=== PATIENT | female | born 1990 | race Caucasian/White ===

== ENCOUNTER 2018-08-28 09:02 | Inpatient (IN) | payer OTHER ==
[2018-08-28] MEDS: RINGERS SOLUTION,LACTATED 1,000 ML IV PRN ×3 (09:20→14:11)
[2018-08-28] MEDS ORDERED: OXYTOCIN/NORMAL SALINE 20 UNIT/1,000 ML RTUINJ IV PRN ×2 (09:29→17:09)
[2018-08-28] MEDS ORDERED: RINGERS SOLUTION,LACTATED 300 ML IV ONE (09:29)
[2018-08-28 10:02] LABS: HEMATOCRIT 29.8 % (36.0-47.0); HEMOGLOBIN 10.1 g/dL (12.0-15.5); MEAN CORPUSCULAR HEMOGLOBIN 31.8 pg (27.0-33.4); MEAN CORPUSCULAR HGB CONC 33.9 g/dL (32.0-36.0); MEAN CORPUSCULAR VOLUME 94 fl (80-97); PLATELET COUNT 233 10^3/uL (150-450); RED BLOOD COUNT 3.17 10^6/uL (3.72-5.28); RED CELL DISTRIBUTION WIDTH 15.4 % (11.5-14.0); WHITE BLOOD COUNT 9.9 10^3/uL (4.0-10.5)
[2018-08-28 10:04] LABS: APPEARANCE,URINE CLOUDY; BILIRUBIN,URINE NEGATIVE (NEGATIVE); COLOR,URINE YELLOW; GLUCOSE, URINE NEGATIVE (NEGATIVE); KETONES,URINE NEGATIVE (NEGATIVE); LEUKOCYTE ESTERASE,URINE MODERATE (NEGATIVE); NITRITE,URINE NEGATIVE (NEGATIVE); PROTEIN,URINE NEGATIVE (NEGATIVE); URINE SPECIFIC GRAVITY 1.016; UROBILINOGEN,URINE NEGATIVE mg/dL (<2.0)
--- NOTE | 2018-08-28 10:04 | Admission Physical ---
Datetime Report Generated by CPN: 08/28/2018 10:03 CURRENT ADMISSION Chief Complaint: Scheduled Induction of Labor Indication for Induction: Not Applicable Indication for Induction- Other: hx precipitous del polyhydramnios Admit Impression : No Active Labor Admit Plan: Initiate Labor Induction Protocol ALLERGIES Medication Allergies: No Medication Allergies: No Known Allergies (08/28/2018) Latex: No Latex Allergies (Annotations: Data stored by [facility] on behalf of user) Food Allergies: n/a Environmental Allergies: n/a OBSTETRICAL HISTORY EDC: 08/30/2018 00:00 : 3 Para: 2 Term: 2 : 0 SAB: 0 IAB: 0 Ectopic: 0 Livin Cesareans: 0 VBACs: 0 Multiple Births: 0 Gestational Diabetes: No Rh Sensitization: No Incompetent Cervix: No DORIE: No Infertility: No ART Treatment: No Uterine Anomaly: No IUGR: No Hx Previous C/S: No Macrosomia: No Hx Loss/Stillborn: No PIH: No Hx : No Placenta Previa/Abruption: No Depression/PP Depression: No PTL/PROM: No Post Hemorrhage: No Current Procedures: Ultrasound; NST Obstetrical History Comments: G1- term delivery G2- term delivery G3- current , poly SEE RECORDS Alcohol: No Marijuana : No Cocaine: No Other Illicit Drugs: No Cigarettes: Former Smoker. [id number] MEDICAL HISTORY Diabetes: No Blood Transfusion: No Pulmonary Disease (Asthma, TB): No Breast Disease: No Hypertension: No Derrick Helper Surgery: No Heart Disease: No Hosp/Surgery: Yes Autoimmune Disorder: No Anesthetic Complications: No Kidney Disease: No Abnormal Pap Smear: No Neuro/Epilepsy: No Psychiatric Disorders: No Other Medical Diseases: No Hepatitis/Liver Disease: No Significant Family History: No Varicosities/Phlebitis: No Trauma/Violence : No Thyroid Dysfunction: No Medical History Comments: wisdom teeth removed, childbirth INFECTIOUS HISTORY Gonorrhea: No Genital Herpes: No Chlamydia: No Tuberculosis: No Syphilis: No Hepatitis: No HIV/AIDS Exposure: No Rash or Viral Illness: No HPV: No PHYSICAL EXAM General: Normal HEENT: Deferred Neurologic: Normal Thyroid: Deferred Heart: Normal Lungs: Normal Breast: Deferred Back: Normal Abdomen: Deferred Genitourinary Exam: Normal Extremities: Deferred DTRs: Deferred Pelvic Type: Adequate Physical Exam Comments: 4 cm per Mary Jo on 08/22 FETUS A EGA: 39.5 Monitoring: External US FHR- Baseline: 130 Variability: Moderate 6-25bpm Accelerations: 15X15 Decelerations: None FHR Category: Category I Presentation: Vertex Admit Comment: PATRICK 27cm 08/26 PLANS FOR LABOR AND DELIVERY Labor and Delivery: None Pain Management: Epidural Feeding Preference: Breast Benefit of Breast Feed Discussed: Yes Circumcision: Yes INFORMED CONSENT Assignment: Tiera Wei MD Signature: with User ID: Armani : with User ID: [email or web address]
[2018-08-28 10:24] LABS: URINE AMPHETAMINES SCREEN NEGATIVE; URINE BARBITURATES SCREEN NEGATIVE; URINE BENZODIAZEPINES SCREEN NEGATIVE; URINE COCAINE SCREEN NEGATIVE; URINE MARIJUANA (THC) SCREEN NEGATIVE; URINE METHADONE SCREEN NEGATIVE; URINE PHENCYCLIDINE SCREEN NEGATIVE
[2018-08-28 10:48] LABS: ABSOLUTE LYMPHOCYTES# (MANUAL) 1.2 10^3/uL (0.5-4.7); ABSOLUTE MONOCYTES # (MANUAL) 0.9 10^3/uL (0.1-1.4); ABSOLUTE NEUTROPHILS# (MANUAL) 7.8 10^3/uL (1.7-8.2); BAND NEUTROPHILS % (MANUAL) 6 % (3-5); BASOPHILS % (MANUAL) 0 % (0-2); EOSINOPHILS % (MANUAL) 0 % (0-6); HYPOCHROMASIA SLIGHT; LYMPHOCYTES % (MANUAL) 12 % (13-45); METAMYELOCYTES % (MANUAL) 1 % (0); MONOCYTES % (MANUAL) 9 % (3-13); PLATELET COMMENT ADEQUATE; POLYCHROMASIA SLIGHT; SEGMENTED NEUTROPHILS % (MAN) 72 % (42-78); TOTAL CELLS COUNTED 100; TOXIC GRANULATION SLIGHT
[2018-08-28] MEDS ORDERED: MISOPROSTOL 0.2 MG TABLET ONE (11:52)
[2018-08-28] MEDS ORDERED: LIDOCAINE 1% INJ-PF (10 MG/ML) 30 ML SDV ONE (11:52)
[2018-08-28] MEDS ORDERED: FENTANYL/BUPIVACAINE/NS/PF 300 MCG/150 ML RTUINJ EPI ONE (11:52)
[2018-08-28] MEDS ORDERED: EPHEDRINE SULFATE INJ 50 MG/1 ML AMPULE ONE (11:52)
[2018-08-28] MEDS ORDERED: BUPIVACAINE HCL 0.25 % INJ/PF (2.5 MG/1 ML) 30 ML VIAL ONE (11:53)
[2018-08-28] MEDS ORDERED: OXYTOCIN/NORMAL SALINE 20 UNIT/1,000 ML RTUINJ ONE (11:53)
[2018-08-28] MEDS ORDERED: DIBUCAINE 1% OINTMENT 28 GM TP PRN (17:09)
[2018-08-28] MEDS ORDERED: ZOLPIDEM TARTRATE 5 MG TABLET PO PRN (17:09)
[2018-08-28] MEDS ORDERED: BENZOCAINE/MENTHOL AEROSOL SPRAY 56 ML TOP PRN (17:09)
[2018-08-28] MEDS ORDERED: ACETAMINOPHEN WITH CODEINE #3 TABLET PO PRN (17:09)
[2018-08-28] MEDS ORDERED: DIPH/PERTUSS(ACELL)/TETANUS VAC/PF 0.5 ML SYR (>=10YO) IM PRN (17:09)
[2018-08-28] MEDS ORDERED: MEASLES,MUMPS&RUBELLA VACC/PF 0.5 ML VIAL SUBCUT PRN (17:09)
[2018-08-28] MEDS ORDERED: IBUPROFEN 800 MG TABLET ONE (18:30)
--- NOTE | 2018-08-28 18:49 | Delivery Summary ---
Del Sum A-C Datetime Report Generated by CPN: 08/28/2018 18:49 DELIVERY PERSONNEL DELIVERY PERSONNEL: [id number] Delivery Doctor:: Vonnie Sofia CNM Labor and Delivery Nurse:: Lauren Jorge RN Nursery Nurse:: Catherine Cormier RN Hand Laster/BOOT LINER MAKER: Desiree Cid, TAX ATTORNEY MATERNAL INFORMATION Delivery Anesthesia: Epidural Medications After Delivery: Pitocin Drip 20 Units/1000ml NSS Maternal Complications: Precipitous Labor (<3hrs) Provider Comments: SVDVM over intact perineum with Rt compound hand, AVRIL position. vigorous, to mothers abd. Cord clamped x 2 cut per FOB, mother and stable. Apgars 9,9. Mild PPH. Cytotec placed 1000mcg per Rectum. Hemostasis acheived. LABOR SUMMARY EDC: 08/30/2018 00:00 No. Babies in Womb: 1 Attempted: No Labor Anesthesia: Epidural LABOR INFORMATION Reason for Induction: Polyhydramnios Onset of Labor: 08/28/2018 14:20 Complete Dilatation: 08/28/2018 15:36 Oxytocin: Induction Group B Beta Strep: Negative Steroids Given: None Reason Steroids Not Administered: Not Applicable MEMBRANES Membranes Rupture Method: Artificial Rupture of Membranes: 08/28/2018 14:20 Length of Rupture (hr): 1.55 Amniotic Fluid Color: Clear Amniotic Fluid Amount: Moderate Amniotic Fluid Odor: Normal STAGES OF LABOR Stage 1 hr: 1 Stage 1 min: 16 Stage 2 hr: 0 Stage 2 min: 17 Stage 3 hr: 0 Stage 3 min: 13 Total Time in Labor hr: 1 Total Time in Labor min: 46 VAGINAL DELIVERY Episiotomy: None Laceration #1: None Laceration Extension #1: N/A Laceration Repair: Not Applicable Sponge Count Correct: N/A Sharps Count Correct: N/A CSECTION DELIVERY Primary Indication: N/A Secondary Indication: N/A CSection Incidence: N/A Labor: N/A Elective: N/A CSection Incision: N/A BABY A INFORMATION Infant Delivery Date/Time: 08/28/2018 15:53 Method of Delivery: Vaginal Born in Route : No : N/A Forceps: N/A Vacuum Extraction: N/A Shoulder Dystocia : No PRESENTATION/POSITION BABY A Presentation: Cephalic Cephalic Presentation: Vertex Vertex Position: Right Occipital Anterior Breech Presentation: N/A PLACENTA INFORMATION BABY A Placenta Delivery Time : 08/28/2018 16:06 Placenta Method of Delivery: Spontaneous Placenta Status: Delivered SCORES BABY A Heart Rate 1 min: >100 bpm Resp Effort 1 min: Good Cry Reflex Irritability 1 min: Cough or Sneeze or Pulls Away Muscle Tone 1 min: Active Motion Color 1 min: Body Manley, Extremities Blue Resuscitation Effort 1 min: Tactile Stimulation SCORE 1 MIN: 9 Heart Rate 5 min: >100 bpm Resp Effort 5 min: Good Cry Reflex Irritability 5 min: Cough or Sneeze or Pulls Away Muscle Tone 5 min: Active Motion Color 5 min: Body Manley, Extremities Blue Resuscitation Effort 5 min: N/A SCORE 5 MIN: 9 INFANT INFORMATION BABY A Gestational Age at Delivery: 39.5 Gestational Status: Full Term- 39- 40.6 Weeks Outcome : Liveborn Infant Condition : Stable Sex: Male IDENTIFICATION BABY A Infant Verification Date/Time: 08/28/2018 16:10 ID Band Number: [id number] Mother's Name Verified: Yes RN Verifying : B Baidy RN Additional Verifying Personnel: C Yohannes RN WEIGHT/LENGTH BABY A Birthweight (gm): 4220 Infant Weight (lb): 9 Infant Weight (oz): 5 Length (in): 20.75 Length (cm): 52.71 CORD INFORMATION BABY A No. Cord Vessels: 3 Nuchal Cord : N/A Cord Blood Taken: Yes-For Storage (Mom's Blood type +) Infant Suction: Mouth ASSESSMENT BABY A Complications: None Physical Findings at Delivery: Bruising Physical Findings- Other: facial bruising Infant Respirations: Appears Normal Skin to Skin: Yes Survival Equipment Repairer/ALS Called : No Care By: Beto Cormier RN Transferred To: Remains with Mother BABY B INFORMATION : N/A SIGNATURES Assignment: Tiera Younger Eure, MD Signature: with User ID: [email or web address] : with User ID: [email or web address] : I was personally available for consultation and serving as supervising physician for the MLP.
[2018-08-28] MEDS: FERROUS SULFATE 325 MG TABLET PO SCH (19:59)
[2018-08-28] MEDS: DOCUSATE SODIUM 100 MG CAPSULE PO SCH (19:59)
[2018-08-28] MEDS: ACETAMINOPHEN WITH CODEINE #3 TABLET PO PRN (20:28)
[2018-08-28] MEDS: IBUPROFEN 800 MG TABLET PO SCH (22:52)
[2018-08-29] MEDS: IBUPROFEN 800 MG TABLET PO SCH ×3 (05:52→21:28)
[2018-08-29 07:34] LABS: HEMOGLOBIN 9.7 g/dL (12.0-15.5); MEAN CORPUSCULAR HEMOGLOBIN 30.9 pg (27.0-33.4); MEAN CORPUSCULAR HGB CONC 33.5 g/dL (32.0-36.0); MEAN CORPUSCULAR VOLUME 92 fl (80-97); PLATELET COUNT 209 10^3/uL (150-450); RED BLOOD COUNT 3.15 10^6/uL (3.72-5.28); RED CELL DISTRIBUTION WIDTH 15.4 % (11.5-14.0); WHITE BLOOD COUNT 10.5 10^3/uL (4.0-10.5)
--- NOTE | 2018-08-29 09:04 | PDOC PROGRESS REPORT ---
Addendum entered and electronically signed by SOHAN HUIZAR CNM 08/29/18 09:06: Final Diagnosis Discharge Date: 08/29/18 - Final Diagnosis (1) Anemia, Is this a current diagnosis for this admission?: Yes (2) Polyhydramnios Is this a current diagnosis for this admission?: Yes (3) Vaginal delivery Is this a current diagnosis for this admission?: Yes (4) PPH ( hemorrhage) Is this a current diagnosis for this admission?: Yes Original Note: Subjective-OB Progress Note for:: 08/29/18 - PP Day #1, doing well, no complaints, , Physical Exam (OB) Vital Signs: Temp Pulse Resp BP Pulse Ox 98.4 F 79 18 138/63 H 97 08/28/18 21:11 08/28/18 21:11 08/28/18 21:11 08/28/18 21:11 08/28/18 21:11 Intake & Output 08/28/18 08/29/18 08/30/18 06:59 06:59 06:59 Intake Total 2604 Balance 2604 Weight 98.2 kg - General General Appearance: Appears well, Alert - PIH/Pre-Eclampsia Headache: Absent Epigastric Pain: No Visual Changes: No - Lochia Lochia Amount: Scant < 10 ml Lochia Color: Rubra/Red - Abdomen Description: Tender, Soft Hernia Present: No Fundal Description: Firm, Midline Fundal Height: u/u - u/2 - HEENT Head: Normocephalic Eyes: Normal Mucous membrane: Normal - Respiratory Respiratory Status: No respiratory distress - Abdominal Inspection: Normal Distension: No distension - Genitourinary Genitourinary Note: voiding - Extremities Upper extremity: Normal inspection Lower extremities: Normal inspection - Neurological Cognition: Normal Orientation: AAOx4 - Psychological Associated symptoms: Normal affect, Normal mood - Skin Skin Temperature: Warm Objective-Diagnostic Laboratory: 08/29/18 07:01 08/28/18 08/28/18 08/28/18 09:16 09:16 09:30 WBC 9.9 RBC 3.17 L Hgb 10.1 L Hct 29.8 L MCV 94 MCH 31.8 MCHC 33.9 RDW 15.4 H Plt Count 233 Seg Neutrophils % Not Reportable Lymphocytes % Not Reportable Monocytes % Not Reportable Eosinophils % Not Reportable Basophils % Not Reportable Absolute Neutrophils Not Reportable Absolute Lymphocytes Not Reportable Absolute Monocytes Not Reportable Absolute Eosinophils Not Reportable Absolute Basophils Not Reportable Urine Color YELLOW Urine Appearance CLOUDY Urine pH 6.0 Ur Specific [place] 1.016 Urine Protein NEGATIVE Urine Glucose (UA) NEGATIVE Urine Ketones NEGATIVE Urine Blood NEGATIVE Urine Nitrite NEGATIVE Ur Leukocyte Esterase MODERATE H Urine WBC (Auto) 10 Urine RBC (Auto) 2 Blood Type A POSITIVE Antibody Screen NEGATIVE 08/29/18 07:01 WBC 10.5 RBC 3.15 L Hgb 9.7 L Hct 29.0 L MCV 92 MCH 30.9 MCHC 33.5 RDW 15.4 H Plt Count 209 Seg Neutrophils % Lymphocytes % Monocytes % Eosinophils % Basophils % Absolute Neutrophils Absolute Lymphocytes Absolute Monocytes Absolute Eosinophils Absolute Basophils Urine Color Urine Appearance Urine pH Ur Specific [place] Urine Protein Urine Glucose (UA) Urine Ketones Urine Blood Urine Nitrite Ur Leukocyte Esterase Urine WBC (Auto) Urine RBC (Auto) Blood Type Antibody Screen Assessment and Plan(PN) - Assessment and Plan (1) Anemia, Is this a current diagnosis for this admission?: Yes (2) Polyhydramnios Qualifiers: Fetus number: single or unspecified fetus Is this a current diagnosis for this admission?: Yes (3) Vaginal delivery Is this a current diagnosis for this admission?: Yes - Time Spent with Patient Time with patient: Less than 15 minutes Medications reviewed and adjusted accordingly: Yes - Disposition Anticipated Discharge: Home Within: within 24 hours
[2018-08-29] MEDS: DOCUSATE SODIUM 100 MG CAPSULE PO SCH ×2 (09:56→19:20)
[2018-08-29] MEDS: FERROUS SULFATE 325 MG TABLET PO SCH ×2 (09:56→19:20)
[2018-08-29] MEDS: PRENATAL VITAMIN W DHA CAPSULE PO SCH (09:56)
[2018-08-29] MEDS: SENNOSIDES/DOCUSATE 8.6-50 MG 1 EACH TABLET PO SCH (09:56)
[2018-08-29] MEDS: ACETAMINOPHEN WITH CODEINE #3 TABLET PO PRN (10:03)
[2018-08-30] MEDS: IBUPROFEN 800 MG TABLET PO SCH (05:39)
[2018-08-30 08:20] VITALS: BP 132/76
--- NOTE | 2018-08-30 08:49 | PDOC PROGRESS REPORT ---
Subjective-OB Progress Note for:: 08/30/18 Subjective: OOB to nursery, no c/o, Physical Exam (OB) Vital Signs: Temp Pulse Resp BP Pulse Ox 98.2 F 75 16 132/76 H 98 08/30/18 07:42 08/30/18 07:42 08/30/18 07:42 08/30/18 07:42 08/30/18 07:42 Intake & Output 08/29/18 08/30/18 08/31/18 06:59 06:59 06:59 Intake Total 2604 Balance 2604 Weight 98.2 kg - PIH/Pre-Eclampsia Headache: Absent Epigastric Pain: No Visual Changes: No - Lochia Lochia Amount: Scant < 10 ml Lochia Color: Rubra/Red - Abdomen Description: Tender, Soft Hernia Present: No Fundal Description: Firm Fundal Height: u/u - u/2 Objective-Diagnostic Laboratory: 08/29/18 07:01 Assessment and Plan(PN) - Assessment and Plan (1) PPH ( hemorrhage) Qualifiers: hemorrhage type: unspecified Qualified Code(s): O72.1 - Other immediate hemorrhage Is this a current diagnosis for this admission?: Yes (2) Polyhydramnios Qualifiers: Fetus number: single or unspecified fetus Is this a current diagnosis for this admission?: Yes (3) Vaginal delivery Is this a current diagnosis for this admission?: Yes - Time Spent with Patient Time with patient: Less than 15 minutes Medications reviewed and adjusted accordingly: Yes - Disposition Anticipated Discharge: Home Within: within 24 hours
--- NOTE | 2018-08-30 08:52 | PDOC DISCHARGE SUMMARY ---
Final Diagnosis Discharge Date: 08/30/18 - Final Diagnosis (1) PPH ( hemorrhage) Is this a current diagnosis for this admission?: Yes (2) Polyhydramnios Is this a current diagnosis for this admission?: Yes (3) Vaginal delivery Is this a current diagnosis for this admission?: Yes Discharge Data - Discharge Medication Home Medications: Iron 1 tab PO DAILY 08/28/18 Vit,Calc76/Iron/Folic [Prenatabs Rx Tablet] 1 tab PO DAILY 08/28/18 Ferrous Sulfate [Feosol 325 mg Tablet] 325 mg PO BID tablet 08/30/18 Gestational Age: 39.5 Reason(s) for Admission: Onset of Labor Procedures: NST, Ultrasound Intrapartum Procedure(s): Spontaneous Vaginal Delivery Complication(s): Hemorrhage-Uterine Atony - Diagnosis Test Laboratory: Temp Pulse Resp BP Pulse Ox 98.2 F 75 16 132/76 H 98 08/30/18 07:42 08/30/18 07:42 08/30/18 07:42 08/30/18 07:42 08/30/18 07:42 08/28/18 08/28/18 08/29/18 09:16 09:30 07:01 RBC 3.17 L 3.15 L Hgb 10.1 L 9.7 L Hct 29.8 L 29.0 L Urine Opiates Screen UNCONFIRMED POSITIVE - Discharge information/Instructions Discharge Activity: Activity As Tolerated, No Lifting Over 10 Pounds, No Lifting/Push/Pulling, Pelvic Rest Discharge Diet: As Tolerated, Regular Disposition: HOME, SELF-CARE Follow up with: [facility] in: 4, Weeks
[2018-08-30] MEDS: DOCUSATE SODIUM 100 MG CAPSULE PO SCH (10:00)
[2018-08-30] MEDS: FERROUS SULFATE 325 MG TABLET PO SCH (10:00)
[2018-08-30] MEDS: SENNOSIDES/DOCUSATE 8.6-50 MG 1 EACH TABLET PO SCH (10:00)
[2018-08-30] MEDS: PRENATAL VITAMIN W DHA CAPSULE PO SCH (10:00)
== END 2018-08-30 13:15 | disposition home or self-care (01) | DRG 806 ==
LOC: LR 09:02 → 2S 19:00
PROVIDERS: ADMIT Obstetrics & Gynecology; ATTEND Obstetrics & Gynecology
PROC: 10E0XZZ Delivery of Products of Conception, External Approach (ICD-10-PCS; principal; 2018-08-28)
PROC: 4A1HXCZ Monitoring of Products of Conception, Cardiac Rate, External Approach (ICD-10-PCS; 2018-08-28)
DX: O40.3XX0 Polyhydramnios, third trimester, not applicable or unspecified (principal); O72.1 Other immediate postpartum hemorrhage; Z37.0 Single live birth; O62.3 Precipitate labor; O32.6XX0 Maternal care for compound presentation, not applicable or unspecified; O99.02 Anemia complicating childbirth; D64.9 Anemia, unspecified; Z87.891 Personal history of nicotine dependence; Z3A.39 39 weeks gestation of pregnancy
CPT/HCPCS: 36415; 80307; 80361; 81001; 85025; 85027; 86592; 86850; 86900; 86901; 94760; J2590; J3010; J3490